=== PATIENT | male | born 1975 | race Caucasian/White ===

== ENCOUNTER 2018-08-06 10:22 | Outpatient (CLI) | payer BC ==
--- NOTE | 2018-08-06 13:40 | MRI ---
MRI OF THE RIGHT KNEE PERFORMED WITHOUT CONTRAST ENHANCEMENT: History: Chronic right knee pain. FINDINGS: Increased signal change seen within the ACL which does appear to be intact. Changes suggest chronic m ucoid degeneration. Posterior cruciate ligament is normal in appearance. The medial and lateral menisci both have a relatively normal shape and appearance. The medial and lateral collateral ligaments and iliotibial band regions appear unremarkable. Patellar articular cartilage is intact. Medial and lateral patellar retinaculum and quadriceps tendon are normal. There is some very minimal patellar tendinosis noted. No abnormal marrow signal change. IMPRESSION: Increased signal change within the ACL with some mucoid degeneration. POS: C
== END 2018-08-06 10:23 | disposition home or self-care (01) ==
LOC: SCSMRI 10:22
PROVIDERS: ATTEND Orthopaedic Surgery
DX: M23.91 Unspecified internal derangement of right knee (principal)

== ENCOUNTER 2018-08-19 14:26 | Outpatient (CLI) | payer BC ==
--- NOTE | 2018-08-19 17:42 | MRI ---
MRI LUMBAR SPINE WITHOUT CONTRAST: Date: 08/19/18 INDICATION: Right lower extremity radiculopathy, ongoing for 2.5 months. TECHNIQUE: Multiplanar, multisequence MR images were obtained of the lumbar spine without IV contrast. FINDINGS: There is diffuse intermediate signal intensity involving bone marrow which can be related to red jelani ow hyperplasia. Conus is seen to terminate at approximately T12-L1. Visualized retroperitoneum and paravertebral soft tissues appear within normal limits. At L5-S1, there is a broad based disc bulge with fact hypertrophy and loss of disc space height induc ing mild bilateral neural foraminal narrowing. There is no definite nerve root impingement. At L4-5, there is an asymmetric to the right broad based disc bulge inducing mild bilateral neural fo raminal narrowing, right greater than left, without definite nerve root impingement. At L3-4, there is a mild broad based bulge with facet hypertrophy causing mild neural foraminal encro achment without definite impingement. At L2-3, there is a mild broad based bulge without appreciable central canal or neural foraminal narr owing. At L1-2, there is no appreciable central canal or neural foraminal narrowing. At T12-L1, there is no appreciable central canal or neural foraminal narrowing. IMPRESSION: Mild spondylosis of lumbar spine, most pronounced at L3-4 through L5-S1. POS: C
== END 2018-08-19 14:27 | disposition home or self-care (01) ==
LOC: SCSMRI 14:26
PROVIDERS: ATTEND Orthopaedic Surgery
DX: M47.26 Other spondylosis with radiculopathy, lumbar region (principal); M79.604 Pain in right leg; M47.897 Other spondylosis, lumbosacral region
CPT/HCPCS: 72148

== ENCOUNTER 2020-09-12 06:28 | Outpatient (CLI) | payer BC ==
[2020-09-12 09:36] LABS: #Basophils 0.1 10x3/uL (0.0-0.2); #Eosinphils 0.1 10x3/uL (0.0-0.5); #Monocytes 0.5 10x3/uL (0.0-1.1); #Neutrophils 3.3 10x3/uL (1.5-8.4); %Basophils 0.9 % (0.0-2.0); %Eosinophils 2.2 % (0.0-6.0); %Lymphocytes 27.3 % (18.0-47.0); %Monocytes 9.5 % (0.0-10.0); %Neutrophils 59.7 % (40.0-75.0); Hemoglobin 16.4 g/dL (14.0-18.0); Mean Corpuscular Hemoglobin 30.2 PG (27.0-33.0); Mean Corpuscular Volume 88.8 fl (80.0-100.0); Mean Platelet Volume 9.6 fl (7.4-10.4); Platelet Count 278 10x3/uL (130-400); RBC Distribution Width 12.3 % (11.5-14.5); Red Blood Cell (RBC) Count 5.43 10x6/uL (4.40-5.80); White Blood Cell (WBC) Count 5.6 10x3/uL (4.5-11.0)
[2020-09-12 10:09] LABS: Anion Gap 15 mmol/L (10-20); BUN (Urea Nitrogen) 18 mg/dL (8.9-20.6); Calc. Creatinine Clearance 0 mL/min (70-130); Calcium 9.3 mg/dL (7.8-10.44); Carbon Dioxide 22 mmol/L (22-29); Chloride 107 mmol/L (98-107); Glucose 89 mg/dL (70-105); Potassium 4.3 mmol/L (3.5-5.1); Sodium 140 mmol/L (136-145)
[2020-09-12 23:14] LABS: SARS-CoV-2 MS2 Positive; SARS-CoV-2 N Gene Negative; SARS-CoV-2 S Gene Negative; SARS-CoV-2 by NAA Not Detected (NotDetected); SARS-CoV-2 orf1ab Negative
== END 2020-09-12 06:29 | disposition home or self-care (01) ==
LOC: LABBT 06:28
PROVIDERS: ATTEND Surgery
DX: Z01.812 Encounter for preprocedural laboratory examination (principal); Z20.828 Contact with and (suspected) exposure to other viral communicable diseases; K40.90 Unilateral inguinal hernia, without obstruction or gangrene, not specified as recurrent
CPT/HCPCS: 80048; 85025; 87635; U0003

== ENCOUNTER 2020-09-15 06:52 | Day surgery (SDC) | payer BC ==
[2020-09-14 11:03] VITALS: BMI 32.8
[2020-09-15] MEDS ORDERED: PROPOFOL 200 MG/20 ML VIAL ONE (09:49)
[2020-09-15] MEDS ORDERED: Lidocaine 1% PF 5 ML VIAL ONE (09:49)
[2020-09-15] MEDS ORDERED: Glycopyrrolate 0.2 MG/ML 5 ML SYRINGE ONE (09:49)
[2020-09-15] MEDS ORDERED: Dexamethasone 20 MG/5 ML VIAL ONE (09:49)
[2020-09-15] MEDS ORDERED: Ondansetron PF 4 MG/2 ML Vial ONE (09:49)
[2020-09-15] MEDS ORDERED: Rocuronium Bromide 10 MG/ML (10ML VIAL) ONE (09:49)
[2020-09-15] MEDS ORDERED: Bupivacaine 0.25% HCL 30 ML VIAL ONE (10:00)
[2020-09-15] MEDS ORDERED: Lidocaine 1% w/Epinephrine 1:100K 20 ML VIAL ONE (10:00)
[2020-09-15] MEDS ORDERED: Midazolam HCl 2 mg/2 ml Vial ONE (10:07)
[2020-09-15] MEDS ORDERED: Fentanyl 100 MCG/2 ML VIAL ONE ×2 (10:07→11:36)
[2020-09-15] MEDS ORDERED: HYDROcodone/Acetaminophen 5/325 mg Tablet ONE (12:53)
--- NOTE | 2020-09-15 15:45 | OP ---
DATE OF PROCEDURE: 09/15/2020 PREOPERATIVE DIAGNOSIS: Right inguinal hernia. POSTOPERATIVE DIAGNOSIS: Right inguinal hernia. PROCEDURE PERFORMED: DaVinci laparoscopic right inguinal hernia repair with mesh Bard 3D Max large. ANESTHESIA: General. BLOOD LOSS: Minimal. COMPLICATIONS: None. FINDINGS: Direct right inguinal hernia. DESCRIPTION OF PROCEDURE: The patient was taken to the operating room and laid supine on the operating room table. After general anesthetic, a Gunter was placed. The patient the operative table. After general anesthetic, a Gunter was placed. The abdomen was shaved, prepped, and draped in a sterile fashion. A curved incision was made above the umbilicus. Cautery was dissected down to and score the fascia. Abdominal cavity was entered bluntly using a Carol clamp. 11 mm balloon trocar was placed. High-flow pneumoperitoneum was obtained. The patient was placed in Trendelenburg position. Right and left 8 mm robot ports were placed. All ports were docked to the robot. Surgeon goes to the console. The peritoneum was opened and the right groin exposing the preperitoneal space. Preperitoneal space was bluntly dissected to the pubic tubercle medially and to the anterior superior iliac crest laterally. There was a large direct hernia. A Bard 3D Max large mesh had been brought into the sterile field, placed in the abdomen, and M-labeled medial aspect was placed over the pubic tubercle medially. The mesh was laid out laterally to cover the direct, indirect, and femoral areas. 2-0 Vicryl was used to close and sew the mesh to the pubic tubercle medially and to the posterior fascia laterally. The peritoneum was reapproximated using 3-0 Stratafix. All needles were removed from the abdomen and accounted for. All port sites were infiltrated using local anesthetic. All ports were removed under camera visualization. Pneumoperitoneum was let down. Maxon PDS was used to close the fascial defect below the umbilicus. All incisions were irrigated and closed using 4-0 Monocryl and Dermabond. The patient was sent to Recovery in stable condition. All instrument counts, needle counts, and lap counts were correct. Job ID: [id number]
== END 2020-09-15 14:45 | disposition home or self-care (01) ==
LOC: SDC 06:52
PROVIDERS: ATTEND Surgery
PROC: 0YU54JZ Supplement Right Inguinal Region with Synthetic Substitute, Percutaneous Endoscopic Approach (ICD-10-PCS; principal; 2020-09-15)
DX: K40.90 Unilateral inguinal hernia, without obstruction or gangrene, not specified as recurrent (principal); Z79.899 Other long term (current) drug therapy
CPT/HCPCS: C1781; J0690; J1100; J2250; J2405; J2704; J3010; S0020

== ENCOUNTER 2020-12-10 07:44 | Inpatient (IN) | payer BC ==
[2020-12-10] MEDS ORDERED: Fentanyl 100 MCG/2 ML VIAL ONE ×4 (07:51→11:20)
[2020-12-10] MEDS ORDERED: Boostrix 0.5 ML (Tdap) VIAL ONE (07:51)
[2020-12-10 08:28] LABS: #Basophils 0.1 thou/uL (0.0-0.2); #Eosinphils 0.1 thou/uL (0.0-0.7); #Lymphocytes 1.2 thou/uL (1.20-3.40); #Monocytes 0.6 thou/uL (0.11-0.59); #Neutrophils 4.5 thou/uL (1.40-6.50); %Basophils 1.3 % (0.0-1.0); %Eosinophils 2.2 % (0.0-10.0); %Lymphocytes 18.7 % (21.0-51.0); %Monocytes 9.4 % (0.0-10.0); %Neutrophils 68.4 % (42.0-75.0); Hemoglobin 15.3 g/dL (14.0-18.0); Mean Corpuscular HGB CONC 35.2 g/dL (32.0-36.0); Mean Corpuscular Hemoglobin 32.5 pg (27.0-31.0); Mean Corpuscular Volume 92.4 fL (78.0-98.0); Platelet Count 233 thou/uL (130-400); RBC Distribution Width 11.7 % (11.5-14.5); Red Blood Cell (RBC) Count 4.69 mill/uL (4.70-6.10); White Blood Cell (WBC) Count 6.5 thou/uL (4.8-10.8)
[2020-12-10 08:45] LABS: ALT (SGPT) 72 U/L (8-55); AST (SGOT) 59 U/L (5-34); Albumin 3.9 g/dL (3.5-5.0); Alkaline Phosphatase 63 U/L (40-110); Anion Gap 12 mmol/L (10-20); BUN (Urea Nitrogen) 22 mg/dL (8.9-20.6); Bilirubin, Total 0.4 mg/dL (0.2-1.2); Calc. Creatinine Clearance 0 mL/min (70-130); Calcium 8.5 mg/dL (7.8-10.44); Carbon Dioxide 24 mmol/L (22-29); Chloride 108 mmol/L (98-107); Globulin 2.4 g/dL (2.4-3.5); Glucose 118 mg/dL (70-105); Potassium 5.5 mmol/L (3.5-5.1); Protein, Total 6.3 g/dL (6.0-8.3); Sodium 138 mmol/L (136-145)
[2020-12-10] MEDS ORDERED: Dexamethasone 10 MG/ML VIAL ONE (09:07)
[2020-12-10] MEDS ORDERED: Lidocaine Viscous Sol 2% 15 ml UD Cup ONE (09:29)
[2020-12-10 09:31] LABS: INR-International Normal Ratio 0.9; PTT 27.5 sec (22.9-36.1); Prothrombin Time 12.8 sec (12.0-14.7)
[2020-12-10] MEDS ORDERED: Morphine 4 MG/ML VIAL SLOW IVP PRN ×2 (09:34→14:57)
[2020-12-10] MEDS ORDERED: Dextrose 50% Abboject 50 ML SYRINGE SLOW IVP PRN (09:34)
[2020-12-10] MEDS ORDERED: Morphine 2 MG/ML VIAL SLOW IVP PRN (09:34)
[2020-12-10] MEDS ORDERED: Ondansetron PF 4 MG/2 ML Vial IVP PRN (09:34)
[2020-12-10] MEDS ORDERED: Dextrose 5% in Water 1,000 ML IV PRN (09:34)
[2020-12-10] MEDS ORDERED: Midazolam HCl 2 mg/2 ml Vial ONE (09:39)
[2020-12-10] MEDS ORDERED: HYDROmorphone 0.5 MG/0.5 ML SYRINGE ONE (09:44)
[2020-12-10] MEDS ORDERED: Sodium Chloride 0.9% 10 ML ONE (09:48)
[2020-12-10 10:14] LABS: SARS-CoV-2 NAA Rapid Test Not Detected (NotDetected)
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
[2020-12-10] MEDS ORDERED: Phenylephrine 10 MG/ML VIAL ONE (11:02)
[2020-12-10] MEDS ORDERED: SUGAMMADEX SODIUM 200 MG/2 ML VIAL ONE (11:20)
[2020-12-10] MEDS ORDERED: Promethazine HCl 25 MG/ML VIAL IM PRN (11:42)
[2020-12-10] MEDS ORDERED: Ondansetron HCl/PF 4 MG/2 ML Vial IVP PRN (11:42)
[2020-12-10] MEDS ORDERED: HYDROmorphone 2 MG/ML VIAL SLOW IVP PRN (11:42)
[2020-12-10] MEDS ORDERED: PACU-Morphine 4MG/ML VIAL SLOW IVP PRN (11:42)
[2020-12-10] MEDS ORDERED: Promethazine HCl 25 MG/ML VIAL SLOW IVP PRN (11:42)
--- NOTE | 2020-12-10 11:46 | OP ---
DATE OF PROCEDURE: 12/10/2020 GEOCHEMISTRY TEACHER: Jd. PROCEDURES PERFORMED: Close reduction C6-C7 with Britton-Wells tongs; C6-C7 anterior cervical diskectomy, interbody arthrodesis, intervertebral biomechanical device, local morselized autograft, demineralized bone matrix, anterior titanium instrumentation at C6-C7; closure of complex scalp laceration, 20 cm. DESCRIPTION OF PROCEDURE: The patient was brought into the operating room and intubated. He was positioned supine with the head in a modest extension on a gel-filled donut. The massive scalp laceration was then irrigated and closed with 2-0 subgaleal sutures and skyler. This was an extraordinarily large occipital laceration which extended from the nasion all the way to the occiput, approximately 20 cm in length. After the scalp laceration had been closed, Britton-Wells tongs were placed, and using fluoroscopy and traction, we reduced the C6-C7 fracture with good alignment. 10 pounds of traction was left in place to maintain the alignment. The right precervical area was then prepped and draped in a sterile fashion. An incision was made in a standard fashion in the right precervical area. Dissecting medial to the sternocleidomastoid muscle, we identified the anterior cervical spine, and the level was confirmed by x-ray. The C6-C7 disk disruption was obvious and mild distraction was placed at C6-C7. We debrided the intervertebral disk and dissected beneath the posterior longitudinal ligament, completely decompressing the dura. I probed behind both C6 and C7 for any additional disk material or hematoma and found no evidence of this and there was no compression of the spinal cord. After a complete decompression had been secured, the bony endplates were decorticated for the purpose of arthrodesis and appropriately sized intervertebral biomechanical PEEK device was brought into the field, filled with demineralized bone matrix, local morselized autograft, and tapped into place securely at C6-C7. Next, an anterior plate was brought into the field and secured to C6 and C7 using two 14 mm fixed screws at each level. The wound was then extensively irrigated and immaculate hemostasis was secured, and the wound was closed in anatomic layers over a drain. Job ID: [id number]
[2020-12-10] MEDS ORDERED: Iopamidol-370 76% 500 ML 1 ML ONE ×2 (11:47→11:50)
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
[2020-12-10] MEDS: Dexamethasone 4 mg/ml Vial SLOW IVP SCH ×3 (13:51→23:53)
[2020-12-10] MEDS: Sodium Chloride 0.9% 1,000 ML IV SCH ×2 (13:53→20:57)
[2020-12-10 13:56] VITALS: BMI 34.7
[2020-12-10] MEDS ORDERED: Dexamethasone 20 MG/5 ML VIAL ONE (13:57)
[2020-12-10] MEDS ORDERED: ePHEDrine 50 MG/ML VIAL ONE (13:57)
[2020-12-10] MEDS ORDERED: PHENYLEPHRINE-NS 100 MCG/ML 10 ML SYRINGE ONE (13:57)
[2020-12-10] MEDS ORDERED: PROPOFOL 200 MG/20 ML VIAL ONE (13:57)
[2020-12-10] MEDS ORDERED: Succinylcholine 200 MG/10 ml SYRINGE FS ONE (13:57)
[2020-12-10] MEDS ORDERED: Lidocaine 1% PF 5 ML VIAL ONE (13:57)
[2020-12-10] MEDS ORDERED: Rocuronium Bromide 10 MG/ML (10ML VIAL) ONE (13:57)
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
[2020-12-10] MEDS: Gabapentin 300 MG CAP PO SCH ×2 (16:17→21:00)
[2020-12-10] MEDS: Acetaminophen 500 MG TAB PO SCH ×2 (16:17→20:57)
[2020-12-10] MEDS: CEFAZOLIN 2 GM in Premix Bag 1 BAG IVPB SCH ×2 (16:18→23:53)
[2020-12-10] MEDS: Cyclobenzaprine 10 MG TAB PO PRN (18:39)
[2020-12-10] MEDS: Famotidine/PF 20 mg/2ml Vial SLOW IVP SCH (21:00)
[2020-12-10] MEDS: Senokot S 8.6-50 MG TAB PO SCH (21:01)
[2020-12-11] MEDS: Acetaminophen 500 MG TAB PO SCH ×4 (03:14→21:20)
[2020-12-11 04:11] LABS: #Lymphocytes 0.7 thou/uL (1.20-3.40); #Monocytes 0.7 thou/uL (0.11-0.59); #Neutrophils 10.4 thou/uL (1.40-6.50); %Eosinophils 0.1 % (0.0-10.0); %Lymphocytes 6.2 % (21.0-51.0); %Monocytes 6.1 % (0.0-10.0); %Neutrophils 87.6 % (42.0-75.0); Hemoglobin 13.3 g/dL (14.0-18.0); Mean Corpuscular HGB CONC 34.1 g/dL (32.0-36.0); Mean Corpuscular Hemoglobin 31.3 pg (27.0-31.0); Mean Corpuscular Volume 91.6 fL (78.0-98.0); Mean Platelet Volume 7.2 fL (7.4-10.4); Platelet Count 261 thou/uL (130-400); RBC Distribution Width 11.8 % (11.5-14.5); Red Blood Cell (RBC) Count 4.27 mill/uL (4.70-6.10); White Blood Cell (WBC) Count 11.9 thou/uL (4.8-10.8)
[2020-12-11 04:35] LABS: Anion Gap 12 mmol/L (10-20); BUN (Urea Nitrogen) 14 mg/dL (8.9-20.6); Calc. Creatinine Clearance 0 mL/min (70-130); Calcium 7.9 mg/dL (7.8-10.44); Carbon Dioxide 21 mmol/L (22-29); Chloride 108 mmol/L (98-107); Glucose 138 mg/dL (70-105); Magnesium 1.8 mg/dL (1.6-2.6); Phosphorus 2.4 mg/dL (2.3-4.7); Potassium 3.9 mmol/L (3.5-5.1); Sodium 137 mmol/L (136-145)
[2020-12-11] MEDS: Dexamethasone 4 mg/ml Vial SLOW IVP SCH (05:13)
[2020-12-11] MEDS: Sodium Chloride 0.9% 1,000 ML IV SCH ×4 (05:14→15:19)
[2020-12-11] MEDS ORDERED: Magnesium 2 GM/50 ML 2 GM in Premix Bag 1 BAG IVPB SCH (07:30)
[2020-12-11] MEDS ORDERED: Potassium Phosphate 15 MMOL in Sodium Chloride 0.9% 250 ML 250 ML IVPB SCH (07:30)
[2020-12-11] MEDS ORDERED: Sodium Chloride 0.9% 1,000 ML IV SCH (07:45)
[2020-12-11] MEDS: CEFAZOLIN 2 GM in Premix Bag 1 BAG IVPB SCH ×3 (07:47→23:03)
[2020-12-11] MEDS: Senokot S 8.6-50 MG TAB PO SCH ×2 (08:03→21:20)
[2020-12-11] MEDS: Gabapentin 300 MG CAP PO SCH ×3 (08:03→21:20)
[2020-12-11] MEDS: Polyethylene Glycol 3350 17 GM Packet PO SCH (08:04)
[2020-12-11] MEDS: Famotidine/PF 20 mg/2ml Vial SLOW IVP SCH ×2 (08:04→21:19)
--- NOTE | 2020-12-11 10:26 | PRG ---
DATE OF SERVICE: 12/11/2020 SUBJECTIVE: Postoperative day #1, status post C6-C7 ACDF for fracture subluxation. The patient has had improved sensation and strength since the surgery. He reports that his left side is almost back to baseline. He continues to complain of some right-sided weakness. PURA drain overnight put out 15 mL. The patient remains on IV Decadron and Ancef. OBJECTIVE: This morning, the patient is a and O x4. LUE/LLE-good strength throughout in the upper and lower extremity, 5/5. RUE- notably weak in the right sample card maker 3-/5 as well as with extension of the right elbow 3-/5. He is now able to lift the arm overhead to gravity 4-/5 . RLE- good strength with dorsi and plantar flexion 5/5. He is able to flex 4/5 and extend 5/5 at the knee as well . Hip flexor 4/5. ASSESSMENT AND PLAN: The patient has significantly improved motor function following his surgery. We will go ahead and discontinue his IV steroids. I have removed his PURA at the bedside. We will get his Gunter out and begin working with Physical Therapy/Occupational Therapy with likely need for inpatient rehab at some point. We will transfer him to the floor. [facility] ID: [id number] [facility]
[2020-12-11] MEDS: Cyclobenzaprine 10 MG TAB PO PRN ×2 (12:09→21:19)
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
[2020-12-11] MEDS ORDERED: FLU VACC QS2020-21(6MOS UP)/PF 60 MCG/0.5 ML SYRINGE IM ONE (14:45)
[2020-12-11] MEDS: traMADol HCl 50 MG TAB PO SCH ×2 (17:01→23:03)
[2020-12-12] MEDS ORDERED: traMADol HCl 50 MG TAB ONE ×2 (06:24→13:06)
[2020-12-12] MEDS: traMADol HCl 50 MG TAB PO SCH ×5 (06:36→23:14)
[2020-12-12] MEDS ORDERED: Acetaminophen 500 MG TAB ONE (08:52)
[2020-12-12] MEDS ORDERED: Gabapentin 300 MG CAP ONE ×2 (08:52→14:57)
[2020-12-12] MEDS ORDERED: Senokot S 8.6-50 MG TAB ONE (08:52)
[2020-12-12] MEDS ORDERED: Polyethylene Glycol 3350 17 GM Packet ONE (08:52)
[2020-12-12] MEDS: Gabapentin 300 MG CAP PO SCH ×3 (09:01→20:50)
[2020-12-12] MEDS: Polyethylene Glycol 3350 17 GM Packet PO SCH (09:01)
[2020-12-12] MEDS: CEFAZOLIN 2 GM in Premix Bag 1 BAG IVPB SCH (09:01)
[2020-12-12] MEDS: Senokot S 8.6-50 MG TAB PO SCH ×2 (09:01→20:50)
[2020-12-12] MEDS: Famotidine/PF 20 mg/2ml Vial SLOW IVP SCH ×2 (09:01→20:50)
[2020-12-12] MEDS ORDERED: Acetaminophen/Codeine 30-300mg Tablet PO PRN (10:20)
[2020-12-12] MEDS ORDERED: Acetaminophen 500 MG TAB PO PRN (10:22)
--- NOTE | 2020-12-12 12:14 | PRG ---
DATE OF SERVICE: 12/12/2020 SUBJECTIVE: The patient is now postoperative day #2, status post fracture subluxation of C6-C7, status post a C6-C7 reduction and ACDF. He was transitioned from the ICU to the Med/Surg floor yesterday afternoon. His Gunter was removed, and he has been urinating easily on his own. He is tolerating a regular diet, and his pain is well managed with p.o. medications. His strength is improving, and most of dysfunction remains in the right hand. OBJECTIVE: VITAL SIGNS: On exam, this morning, his vital signs are stable. He has been afebrile. EXTREMITIES: The incisions are clean, dry, and intact. He is moving the left side well, but still has significant dysfunction in the right hand. ASSESSMENT AND PLAN: Continue to mobilize and work with PT and OT here. We will begin planning for inpatient rehabilitation. I believe he is ready to transition to their facility at any point in time. Job ID: [id number]
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
[2020-12-12] MEDS: Acetaminophen 500 MG TAB PO SCH ×2 (14:32→14:33)
[2020-12-12 16:49] LABS: Anion Gap 13 mmol/L (10-20); BUN (Urea Nitrogen) 16 mg/dL (8.9-20.6); Calc. Creatinine Clearance 184 mL/min (70-130); Calcium 7.9 mg/dL (7.8-10.44); Carbon Dioxide 22 mmol/L (22-29); Chloride 111 mmol/L (98-107); Glucose 65 mg/dL (70-105); Magnesium 2.2 mg/dL (1.6-2.6); Sodium 142 mmol/L (136-145)
[2020-12-12 17:41] LABS: Phosphorus 2.4 mg/dL (2.3-4.7)
[2020-12-12 19:03] LABS: #Lymphocytes 1.6 thou/uL (1.20-3.40); #Monocytes 0.7 thou/uL (0.11-0.59); #Neutrophils 5.6 thou/uL (1.40-6.50); %Basophils 0.2 % (0.0-1.0); %Eosinophils 0.3 % (0.0-10.0); %Lymphocytes 20.4 % (21.0-51.0); %Monocytes 8.8 % (0.0-10.0); %Neutrophils 70.3 % (42.0-75.0); Mean Corpuscular HGB CONC 32.8 g/dL (32.0-36.0); Mean Corpuscular Volume 94.4 fL (78.0-98.0); Mean Platelet Volume 7.3 fL (7.4-10.4); Platelet Count 208 thou/uL (130-400); RBC Distribution Width 12.2 % (11.5-14.5); Red Blood Cell (RBC) Count 4.19 mill/uL (4.70-6.10); White Blood Cell (WBC) Count 7.9 thou/uL (4.8-10.8)
[2020-12-12] MEDS: Cyclobenzaprine 10 MG TAB PO PRN (20:50)
[2020-12-13] MEDS: traMADol HCl 50 MG TAB PO SCH ×4 (05:11→23:34)
[2020-12-13] MEDS: Famotidine/PF 20 mg/2ml Vial SLOW IVP SCH ×2 (08:10→20:41)
[2020-12-13] MEDS: Gabapentin 300 MG CAP PO SCH ×3 (08:11→20:41)
[2020-12-13] MEDS: Senokot S 8.6-50 MG TAB PO SCH ×2 (08:11→20:41)
[2020-12-13] MEDS: Polyethylene Glycol 3350 17 GM Packet PO SCH (08:11)
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
[2020-12-14] MEDS: Cyclobenzaprine 10 MG TAB PO PRN (02:03)
[2020-12-14] MEDS: traMADol HCl 50 MG TAB PO SCH ×4 (05:34→23:45)
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
[2020-12-14] MEDS: Senokot S 8.6-50 MG TAB PO SCH ×2 (10:09→20:55)
[2020-12-14] MEDS: Gabapentin 300 MG CAP PO SCH ×3 (10:09→20:54)
[2020-12-14] MEDS: Enoxaparin Sodium 30 MG/0.3 ML SYRINGE SC SCH ×2 (10:09→20:55)
[2020-12-14] MEDS: Acetaminophen/Codeine 30-300mg Tablet PO PRN (10:10)
[2020-12-14] MEDS: Polyethylene Glycol 3350 17 GM Packet PO SCH (10:10)
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
[2020-12-15] MEDS: Cyclobenzaprine 10 MG TAB PO PRN (03:45)
[2020-12-15] MEDS: traMADol HCl 50 MG TAB PO SCH ×4 (05:54→23:25)
--- NOTE | 2020-12-15 06:56 | PRG ---
DATE OF SERVICE: 12/15/2020 SUBJECTIVE: No overnight events. The patient is resting comfortably on my arrival. He reports his pain is well controlled with p.o. medication. He has been working with Physical Therapy and walking some in the hallways. He continues to have weakness, which is unchanged in his right hand. The patient continues to mobilize well and his pain seems well controlled at this time. Hopefully, he can transition to rehab in the near future. Okay per Neurosurgery at any point in time. Job ID: [id number]
[2020-12-15] MEDS: Gabapentin 300 MG CAP PO SCH ×3 (09:28→20:56)
[2020-12-15] MEDS: Enoxaparin Sodium 30 MG/0.3 ML SYRINGE SC SCH ×2 (09:28→20:56)
[2020-12-15] MEDS: Polyethylene Glycol 3350 17 GM Packet PO SCH (09:28)
[2020-12-15] MEDS: Senokot S 8.6-50 MG TAB PO SCH ×2 (09:28→20:56)
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
[2020-12-16] MEDS: traMADol HCl 50 MG TAB PO SCH ×4 (05:25→23:43)
[2020-12-16 05:52] LABS: #Eosinphils 0.2 thou/uL (0.0-0.7); #Lymphocytes 1.3 thou/uL (1.20-3.40); #Monocytes 0.7 thou/uL (0.11-0.59); %Basophils 0.8 % (0.0-1.0); %Eosinophils 3.3 % (0.0-10.0); %Lymphocytes 21.3 % (21.0-51.0); %Monocytes 10.6 % (0.0-10.0); %Neutrophils 64.1 % (42.0-75.0); Hemoglobin 14.8 g/dL (14.0-18.0); Mean Corpuscular HGB CONC 31.8 g/dL (32.0-36.0); Mean Platelet Volume 6.4 fL (7.4-10.4); Platelet Count 320 thou/uL (130-400); RBC Distribution Width 11.6 % (11.5-14.5); Red Blood Cell (RBC) Count 5.11 mill/uL (4.70-6.10); White Blood Cell (WBC) Count 6.3 thou/uL (4.8-10.8)
[2020-12-16] MEDS: Enoxaparin Sodium 30 MG/0.3 ML SYRINGE SC SCH ×2 (09:11→20:27)
[2020-12-16] MEDS: Polyethylene Glycol 3350 17 GM Packet PO SCH (09:11)
[2020-12-16] MEDS: Gabapentin 300 MG CAP PO SCH ×3 (09:11→20:26)
[2020-12-16] MEDS: Senokot S 8.6-50 MG TAB PO SCH ×2 (09:11→20:26)
--- NOTE | 2020-12-16 09:27 | PRG ---
DATE OF SERVICE: 12/16/2020 The patient is resting comfortably on the floor this morning. No overnight events. He is mobilizing well and has been walking in the [place] with Physical therapy. He still has quite a bit of dysfunction in the right hand. His pain is well controlled. He is voiding appropriately and tolerating a regular diet. He is ready for rehab at any point in time. Job ID: [id number]
[2020-12-16 14:37] LABS: SARS-CoV-2 NAA Rapid Test Not Detected (NotDetected)
[2020-12-16] MEDS: Cyclobenzaprine 10 MG TAB PO PRN (19:02)
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
[2020-12-17] MEDS: traMADol HCl 50 MG TAB PO SCH (05:16)
[2020-12-17] MEDS: Enoxaparin Sodium 30 MG/0.3 ML SYRINGE SC SCH (08:39)
[2020-12-17] MEDS: Acetaminophen/Codeine 30-300mg Tablet PO PRN (08:39)
[2020-12-17] MEDS: Gabapentin 300 MG CAP PO SCH (08:39)
[2020-12-17] MEDS: Polyethylene Glycol 3350 17 GM Packet PO SCH (08:55)
[2020-12-17] MEDS: Senokot S 8.6-50 MG TAB PO SCH (08:56)
[2020-12-17 09:35] VITALS: BP 120/85; TEMP 97.6
--- NOTE | 2020-12-17 12:31 | DIS ---
DATE OF ADMISSION: 12/10/2020 DATE OF DISCHARGE: 12/17/2020 ADMITTING PHYSICIANS: Anil Morrison MD CONSULTING PHYSICIAN: Nicholas Min DO. NEUROSURGERY: Rufino Greene MD. PROCEDURES: On date of admission, the patient had a closed reduction, C6-C7 with Britton-Wells tongs, C6-C7 anterior cervical diskectomy, interbody arthrodesis, intervertebral biomechanical device, local morselized autograft, demineralized bone matrix, and anterior titanium instrumentation at C6-C7 and closure of complex scalp laceration of 20 cm. The patient was placed in a C-collar. He regained complete neurologic function. Tolerated well. He is spontaneously voided. Had bowel movements. His pain is under control and he has been accepted here. DISCHARGE MEDICATIONS: 1. Tylenol every 6 hours. 2. Gabapentin 600 t.i.d. 3. Lovenox 30 mg b.i.d. 4. Lactulose 20 g nightly. 5. Zofran as needed. 6. Tramadol as needed. 7. Tylenol No. 3 as needed. 8. Cyclobenzaprine 10 mg t.i.d. as needed. FOLLOWUP: Followup will be with the Neurosurgery team. DISCHARGE PLAN: The patient's discharge plan is to go to [facility] rehab. Diet will be a regular diet. Activity needs to have a C-collar in place at all times. Verbalized understanding. PHYSICAL EXAMINATION: On date of discharge, VITAL SIGNS: Temperature is 97.6, blood pressure is 120/85, heart rate is 89, respiratory rate 16, 98% on room air. GENERAL: A 45-year-old male, sitting up, no acute distress. C-collar intact. RESPIRATORY: Equal rise and fall. No respiratory distress. NEUROLOGIC: Alert and oriented to person, place, time and event. Moves all of his extremities. Ambulatory and GCS 15. PSYCH: Normal mood and affect. SKIN: Warm and dry. There is no laboratory data to review for today. Again, discharged to [facility]. I have updated the patient and patient's family at the bedside, answered all questions. Coordinated with the bedside RN. Greater than 30 minutes was taken in discharge planning of this patient. Job ID: [id number]
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
== END 2020-12-17 09:30 | DRG 29 ==
LOC: ERS 07:44 → SDC 09:55 → CCU 09:56 → EEVIPCON 09:56 → SURG A 12-11 10:52
PROVIDERS: ADMIT Surgery; ATTEND Surgery
PROC: 0RG10A0 Fusion of Cervical Vertebral Joint with Interbody Fusion Device, Anterior Approach, Anterior Column, Open Approach (ICD-10-PCS; principal; 2020-12-10)
PROC: 0RB30ZZ Excision of Cervical Vertebral Disc, Open Approach (ICD-10-PCS; 2020-12-10)
PROC: 0JQ00ZZ Repair Scalp Subcutaneous Tissue and Fascia, Open Approach (ICD-10-PCS; 2020-12-10)
PROC: 00NW0ZZ Release Cervical Spinal Cord, Open Approach (ICD-10-PCS; 2020-12-10)
DX: S14.156A Other incomplete lesion at C6 level of cervical spinal cord, initial encounter (principal); S22.030A Wedge compression fracture of third thoracic vertebra, initial encounter for closed fracture; S12.500A Unspecified displaced fracture of sixth cervical vertebra, initial encounter for closed fracture; S01.01XA Laceration without foreign body of scalp, initial encounter; Z23 Encounter for immunization; Z20.822 Contact with and (suspected) exposure to COVID-19; S12.600A Unspecified displaced fracture of seventh cervical vertebra, initial encounter for closed fracture; J30.2 Other seasonal allergic rhinitis; M51.26 Other intervertebral disc displacement, lumbar region; M51.24 Other intervertebral disc displacement, thoracic region; F17.290 Nicotine dependence, other tobacco product, uncomplicated; V47.5XXA Car driver injured in collision with fixed or stationary object in traffic accident, initial encounter; Z79.899 Other long term (current) drug therapy
CPT/HCPCS: 36415; 51702; 70450; 70486; 70498; 71045; 71260; 72125; 74177; 80048; 80053; 80307; 83605; 83735; 84100; 85025; 85610; 85730; 86850; 86900; 86901; 90471; 90715; 93005; 96365; 96374; 96375; 96376; C1713; C1776; G0390; J0690; J1100; J1170; J1650; J2250; J2270; J2370; J2405; J2704; J3010; J3475; J3490; J7050; Q9967; S0028; U0002

== ENCOUNTER 2020-12-29 10:07 | Outpatient (CLI) | payer BC | END 2020-12-29 10:08 | disposition home or self-care (01) | LOC: TBSIIMAG 10:07 | PROVIDERS: ATTEND Physician Assistant | DX: S12.9XXA Fracture of neck, unspecified, initial encounter (principal); Z98.1 Arthrodesis status | CPT/HCPCS: 72040 ==

== ENCOUNTER 2021-02-09 13:46 | Outpatient (CLI) | payer BC | END 2021-02-09 13:47 | disposition home or self-care (01) | LOC: TBSIIMAG 13:46 | PROVIDERS: ATTEND Neurological Surgery | DX: S12.9XXA Fracture of neck, unspecified, initial encounter (principal); Z98.890 Other specified postprocedural states | CPT/HCPCS: 72040 ==

== ENCOUNTER 2021-03-13 11:19 | Outpatient (CLI) | payer BC | END 2021-03-13 11:20 | disposition home or self-care (01) | LOC: TBSIIMAG 11:19 | PROVIDERS: ATTEND Physician Assistant | DX: S12.9XXA Fracture of neck, unspecified, initial encounter (principal); Z98.890 Other specified postprocedural states | CPT/HCPCS: 72040 ==

== ENCOUNTER 2021-04-10 14:49 | Outpatient (CLI) | payer BC | END 2021-04-10 14:50 | disposition home or self-care (01) | LOC: TBSIIMAG 14:49 | PROVIDERS: ATTEND Physician Assistant | DX: S12.101A Unspecified nondisplaced fracture of second cervical vertebra, initial encounter for closed fracture (principal); Z98.1 Arthrodesis status | CPT/HCPCS: 72040 ==

== ENCOUNTER 2021-06-02 11:19 | Outpatient (CLI) | payer BC | END 2021-06-02 11:20 | disposition home or self-care (01) | LOC: TBSIIMAG 11:19 | PROVIDERS: ATTEND Physician Assistant | DX: S12.101A Unspecified nondisplaced fracture of second cervical vertebra, initial encounter for closed fracture (principal) | CPT/HCPCS: 72040 ==